=== PATIENT | male | born 1965 | race Caucasian/White ===

== ENCOUNTER 2019-03-17 17:09 | Emergency (ER) | payer MEDICAID ==
[~2019-03-17] VITALS: Ht 175.3 cm; Wt 90.9 kg
[~2019-03-17 17:09] MED LIST: ALBU8.5H8 IH; IBUP-1984 PO; LEVO25TA50 PO; NITR0.4T48 SL; NITR0.4T51 SL; OMEP-84 PO; TRAM50TA2 PO; TRIA1CAP PO
[2019-03-17 17:12] VITALS: BP 119/72
[2019-03-17] MEDS ORDERED: cephalexin 250mg capsule PO ONE (18:45)
[2019-03-17] MEDS ORDERED: CEPH500C5 PO (18:46)
== END 2019-03-17 19:00 | disposition home or self-care (01) ==
LOC: ER 17:09
DX: L03.116 Cellulitis of left lower limb (principal); I25.10 Atherosclerotic heart disease of native coronary artery without angina pectoris; J44.9 Chronic obstructive pulmonary disease, unspecified; G89.29 Other chronic pain; F17.200 Nicotine dependence, unspecified, uncomplicated; Z79.899 Other long term (current) drug therapy; Z98.890 Other specified postprocedural states; Z59.0 Homelessness
CPT/HCPCS: 99283

== ENCOUNTER 2021-01-16 14:38 | Emergency (ER) | payer MEDICAID ==
[~2021-01-16] VITALS: Ht 175.3 cm; Wt 92.4 kg
[~2021-01-16 14:38] MED LIST changes: +ALBU8.5H17 IH; -ALBU8.5H8 IH
[2021-01-16 15:54] VITALS: BP 124/80
== END 2021-01-16 22:21 | disposition left against medical advice (07) ==
LOC: ER 14:39
DX: Z02.89 Encounter for other administrative examinations (principal); R42 Dizziness and giddiness; I25.10 Atherosclerotic heart disease of native coronary artery without angina pectoris; J44.9 Chronic obstructive pulmonary disease, unspecified; G89.29 Other chronic pain; Z98.890 Other specified postprocedural states; Z72.89 Other problems related to lifestyle; Z79.899 Other long term (current) drug therapy
CPT/HCPCS: 99283

== ENCOUNTER 2024-05-24 06:30 | Inpatient (IN) | payer MEDICAID ==
[~2024-05-24] VITALS: Ht 175.3 cm; Wt 97.1 kg
[2024-05-24] MEDS ORDERED: ipratropium/albuterol 3ml nebule NEB PRN (06:55)
[2024-05-24] MEDS: ketorolac trometh 30MG/ML vial 30 MG/ML VIAL IV ONE (07:36)
[2024-05-24] MEDS: CefTRIAXone 2gm/D5W 50ml BAG 50 ML IV ONE (07:36)
[2024-05-24] MEDS: methylPREDNISolone sod succ/PF 40mg inj. IV SCH (07:37)
[2024-05-24 08:07] LABS: BASOPHILS # (AUTO) 0.1 X10'3 (0-0.2); BASOPHILS % (AUTO) 1.1 % (0-1); EOSINOPHILS # (AUTO) 0.1 X10'3 (0-0.9); LYMPHOCYTES # (AUTO) 0.7 X10'3 (1.1-4.8); LYMPHOCYTES % (AUTO) 7.4 % (21-51); MEAN CORPUSCULAR HGB CONC 34.3 g/dL (33.0-36.5); MEAN CORPUSCULAR VOLUME 98.9 FL (78-98); MEAN PLATELET VOLUME 6.9 FL (7.4-10.4); MONOCYTES # (AUTO) 0.7 X10'3 (0-0.9); NEUTROPHILS # (AUTO) 8.3 X10'3 (1.8-7.7); NEUTROPHILS % (AUTO) 83.5 % (42-75); PLATELET COUNT 618 X10'3 (140-440); RED BLOOD COUNT 3.54 X10'6 (4.70-6.10)
[2024-05-24] MEDS ORDERED: iohexol 350MG/ML 100ml bottle IV ONE (08:18)
[2024-05-24 08:27] LABS: ALANINE AMINOTRANSFERASE 87 U/L (12-78); ALBUMIN/GLOBULIN RATIO 0.7 (1.1-1.5); ANION GAP 8 (8-16); BILIRUBIN,TOTAL 0.5 MG/DL (0.1-1.0); BLOOD UREA NITROGEN 13 MG/DL (7-18); BUN/CREATININE RATIO 10.5 (10.0-20.0); CALCIUM 9.1 MG/DL (8.5-10.1); CHLORIDE 100 MMOL/L (99-107); CREATININE 1.24 MG/DL (0.60-1.10); GLUCOSE 118 MG/DL (70-104); SODIUM 138 MMOL/L (135-145); TOTAL PROTEIN 7.6 G/DL (6.4-8.2); eCRCL 64 ML/MIN; eGFR 60 ML/MIN
[2024-05-24 08:33] LABS: PRO BRAIN NATRIURETIC PEPTIDE 195 PG/ML (0-125)
[2024-05-24 08:36] LABS: ASPARTATE AMINO TRANSFERASE 88 U/L (10-37); POTASSIUM 4.5 MMOL/L (3.5-5.1)
[2024-05-24 08:45] LABS: ALKALINE PHOSPHATASE 1003 IU/L (46-116)
[2024-05-24] MEDS ORDERED: NO HOME MEDS (10:09)
[2024-05-24] MEDS ORDERED: acetaminophen 325mg tablet PO PRN ×2 (10:30)
[2024-05-24] MEDS ORDERED: potassium Cl 40MEQ/1/2NS 520ml 520 ML IV PRN (10:30)
[2024-05-24] MEDS ORDERED: magnesium hydroxide 30ml (MOM) UD suspension PO PRN (10:30)
[2024-05-24] MEDS ORDERED: ondansetron/PF 4mg/2ml inj IV PRN (10:30)
[2024-05-24] MEDS ORDERED: potassium Cl 20 mEq SR tablet PO PRN ×2 (10:30)
[2024-05-24] MEDS ORDERED: magnesium sulf-water 2g/50mL 50 ML IV PRN (10:30)
[2024-05-24] MEDS ORDERED: magnesium sulf-water 4G/100mL 100 ML IV PRN (10:30)
[2024-05-24] MEDS ORDERED: morphine 2 MG/ML inj. syringe IV PRN (10:30)
[2024-05-24 10:58] LABS: MAGNESIUM 2.1 MG/DL (1.5-2.4)
[2024-05-24 11:03] LABS: LACTATE DEHYDROGENASE 326 U/L (85-227)
[2024-05-24 11:45] VITALS: BP 157/107; PULSE 77; RESP 18; O2SAT 93
[2024-05-24 12:03] VITALS: BP 138/92; PULSE 79; RESP 20; O2SAT 95
[2024-05-24] MEDS: morphine 2 MG/ML inj. syringe IV PRN (12:07)
[2024-05-24 12:45] LABS: BFSOURCE PLEURAL FLD; PLEURAL FLUID PH 7.354 (7.63-7.65)
[2024-05-24 13:04] LABS: GLUCOSE,BODY FLUID 111 MG/DL; LDH,BODY FLUID 170 U/L; TOTAL PROTEIN,BODY FLUID 5.4 G/DL
[2024-05-24 13:52] LABS: BF RBC COUNT 46 /CU MM; BF WBC COUNT 333 /CU MM (0-1000); BFAPPEAR HAZY; BFCOLOR YELLOW; BFSOURCE LEFT PLEURAL FLD; BFVOLUME 60 ML; LYMPHOCYTES,BODY FLUID 9 %; NEUTROPHILS,BODY FLUID 71 %
[2024-05-24 13:53] LABS: EOSINOPHILS,BODY FLUID 4 %; MONOCYTES,BODY FLUID 16 %
[2024-05-24] MEDS: PERFLUTREN PROTEIN-A MICROSPHR (Optison) 0.22 MG/ML 3ML VIAL IV ONE (15:25)
[2024-05-24] MEDS ORDERED: CLINDAMYCIN 600mg IN NS 50ML 50 ML IV SCH (15:45)
[2024-05-24 16:49] LABS: ABG BASE EXCESS -0.2 mmol/L (-2.0-3.0); ABG HCO3 25.5 mmol/L (21.0-28.0); ABG OXYGEN SATURATION 88.9 % (94.0-98.0); ABG PCO2 (T) 45.3 mmHg (35.0-48.0); ABG PH (T) 7.367 (7.350-7.450); ABG PO2 (T) 56.6 mmHg (83.0-108.0); ALLEN'S TEST POSITIVE; FCOHb 1.6 % (0.5-1.5); FHHb 10.9 % (0.0-5.0); FMetHb 0.3 % (0.0-1.5); FO2Hb 87.2 % (94.0-98.0); MODE NASAL CANNULA; PATIENT TEMPERATURE 36.8; TOTAL HEMOGLOBIN 13.4 G/dl (13.5-17.5)
[2024-05-24 18:00] VITALS: BP 113/66; PULSE 80; RESP 18; TEMP 97; O2SAT 95
[2024-05-24] MEDS: K and/or MAG REPLACEMENT MC SCH (20:00)
[2024-05-24] MEDS: docusate sod 100mg capsule PO SCH (20:00)
[2024-05-24] MEDS: heparin, porcine 5000 units/ml vial SQ SCH (20:00)
[2024-05-24] MEDS: levoFLOXACIN-Levaquin 750MG/D5 150 ML IV SCH (21:13)
[2024-05-24] MEDS: HYDROcodone/acetaminophen 10/325mg tab PO PRN (21:47)
[2024-05-24 22:00] VITALS: BP 138/80; PULSE 71; RESP 16; TEMP 98.2; O2SAT 95
[2024-05-24 23:13] VITALS: BP 125/69; PULSE 91; RESP 24; TEMP 97.7; O2SAT 95
[2024-05-25] MEDS: clindamycin 600mg/D5W 50ml 50 ML IV SCH (00:36)
[2024-05-25] MEDS: mag hydrox/Alum hydrox/simeth 30ml oral suspension PO PRN (02:00)
[2024-05-25] MEDS ORDERED: methylPREDNISolone sod succ 125mg/2ml vial IV SCH (02:19)
[2024-05-25] MEDS: methylPREDNISolone sod succ 125mg/2ml vial IV SCH (02:44)
[2024-05-25 04:33] LABS: BASOPHILS % (AUTO) 0.1 % (0-1); EOSINOPHILS % (AUTO) 0 % (0-6); HEMOGLOBIN 11.7 g/dl (14.0-17.9); LYMPHOCYTES # (AUTO) 0.5 X10'3 (1.1-4.8); LYMPHOCYTES % (AUTO) 3.9 % (21-51); MEAN CORPUSCULAR HEMOGLOBIN 33.2 PG (27.0-31.0); MEAN CORPUSCULAR HGB CONC 33.5 g/dL (33.0-36.5); MEAN CORPUSCULAR VOLUME 98.9 FL (78-98); MEAN PLATELET VOLUME 6.7 FL (7.4-10.4); MONOCYTES # (AUTO) 0.3 X10'3 (0-0.9); MONOCYTES % (AUTO) 2.1 % (2-12); NEUTROPHILS # (AUTO) 11.8 X10'3 (1.8-7.7); NEUTROPHILS % (AUTO) 93.9 % (42-75); PLATELET COUNT 597 X10'3 (140-440); RED BLOOD COUNT 3.54 X10'6 (4.70-6.10); WHITE BLOOD COUNT 12.5 X10'3 (4.5-11.0)
[2024-05-25 04:56] LABS: ALANINE AMINOTRANSFERASE 83 U/L (12-78); ALBUMIN 2.8 G/DL (3.4-5.0); ALBUMIN/GLOBULIN RATIO 0.6 (1.1-1.5); ALKALINE PHOSPHATASE 976 IU/L (46-116); ANION GAP 7 (8-16); ASPARTATE AMINO TRANSFERASE 72 U/L (10-37); BILIRUBIN,TOTAL 0.3 MG/DL (0.1-1.0); BLOOD UREA NITROGEN 24 MG/DL (7-18); BUN/CREATININE RATIO 16.1 (10.0-20.0); CALCIUM 8.6 MG/DL (8.5-10.1); CHLORIDE 99 MMOL/L (99-107); CREATININE 1.49 MG/DL (0.60-1.10); GLUCOSE 215 MG/DL (70-104); POTASSIUM 4.3 MMOL/L (3.5-5.1); SODIUM 138 MMOL/L (135-145); TOTAL CARBON DIOXIDE 31.9 MMOL/L (24-32); TOTAL PROTEIN 7.4 G/DL (6.4-8.2); eCRCL 53 ML/MIN; eGFR 48 ML/MIN
[2024-05-25 06:00] VITALS: BP 126/80; PULSE 84; RESP 16; TEMP 98.9; O2SAT 94
[2024-05-25] MEDS: normal saline 1000ml 1,000 ML IV SCH (08:53)
[2024-05-25] MEDS: nicotine 21mg patch - 24 hr TD SCH (08:54)
[2024-05-25 10:00] VITALS: BP 127/76; PULSE 75; RESP 16; TEMP 98.5; O2SAT 96
[2024-05-25 12:13] LABS: URINE AMPHETAMINE SCREEN POSITIVE (Neg); URINE BARBITUATE SCREEN NEGATIVE (Neg); URINE BENZODIAZEPINES SCREEN NEGATIVE (Neg); URINE CANNABINOID SCREEN POSITIVE (Neg); URINE COCAINE SCREEN NEGATIVE (Neg); URINE METHADONE SCREEN NEGATIVE (Neg); URINE OPIATE SCREEN POSITIVE (Neg); URINE PHENCYCLIDINE SCREEN NEGATIVE (Neg)
[2024-05-25 18:00] VITALS: BP 130/76; PULSE 90; RESP 16; TEMP 98.4; O2SAT 97
[2024-05-25 20:00] VITALS: RESP 16; O2SAT 97
[2024-05-25 22:00] VITALS: BP 156/90; PULSE 78; RESP 14; TEMP 97.7; O2SAT 95
[2024-05-26] VITALS (7 sets, daily range): BP systolic 113–201; BP diastolic 54–110; PULSE 63–84; RESP 16–20; TEMP 97.5–98.1; O2SAT 95–97
[2024-05-26] MEDS: hydrALAZINE 20mg/ml inj. IV STA (07:45)
[2024-05-26] MEDS: amLODIPine 5mg tablet PO SCH (08:15)
[2024-05-26 08:21] LABS: BASOPHILS % (AUTO) 0.1 % (0-1); EOSINOPHILS % (AUTO) 0 % (0-6); HEMATOCRIT 35.2 % (42.0-52.0); HEMOGLOBIN 11.8 g/dl (14.0-17.9); LYMPHOCYTES # (AUTO) 0.5 X10'3 (1.1-4.8); LYMPHOCYTES % (AUTO) 2.4 % (21-51); MEAN CORPUSCULAR HEMOGLOBIN 33.4 PG (27.0-31.0); MEAN CORPUSCULAR HGB CONC 33.5 g/dL (33.0-36.5); MEAN CORPUSCULAR VOLUME 99.7 FL (78-98); MEAN PLATELET VOLUME 6.6 FL (7.4-10.4); MONOCYTES # (AUTO) 0.5 X10'3 (0-0.9); MONOCYTES % (AUTO) 2.8 % (2-12); NEUTROPHILS # (AUTO) 17.9 X10'3 (1.8-7.7); NEUTROPHILS % (AUTO) 94.7 % (42-75); PLATELET COUNT 568 X10'3 (140-440); RED BLOOD COUNT 3.53 X10'6 (4.70-6.10); RED CELL DISTRIBUTION WIDTH 17.9 % (11.5-14.5); WHITE BLOOD COUNT 18.9 X10'3 (4.5-11.0)
[2024-05-26 08:50] LABS: ALANINE AMINOTRANSFERASE 79 U/L (12-78); ALBUMIN 2.9 G/DL (3.4-5.0); ALBUMIN/GLOBULIN RATIO 0.6 (1.1-1.5); ALKALINE PHOSPHATASE 831 IU/L (46-116); ANION GAP 6 (8-16); ASPARTATE AMINO TRANSFERASE 49 U/L (10-37); BILIRUBIN,TOTAL 0.4 MG/DL (0.1-1.0); BLOOD UREA NITROGEN 25 MG/DL (7-18); BUN/CREATININE RATIO 16.6 (10.0-20.0); CALCIUM 8.6 MG/DL (8.5-10.1); CHLORIDE 98 MMOL/L (99-107); CREATININE 1.51 MG/DL (0.60-1.10); GLUCOSE 198 MG/DL (70-104); POTASSIUM 5.2 MMOL/L (3.5-5.1); SODIUM 133 MMOL/L (135-145); TOTAL CARBON DIOXIDE 28.6 MMOL/L (24-32); TOTAL PROTEIN 7.4 G/DL (6.4-8.2); eCRCL 53 ML/MIN; eGFR 48 ML/MIN
[2024-05-26] MEDS: hydrALAZINE 20mg/ml inj. IV SCH (10:36)
[2024-05-27 06:00] VITALS: BP 134/78; PULSE 81; RESP 16; RESP 18; TEMP 97.9; O2SAT 93; O2SAT 96
[2024-05-27 07:42] VITALS: RESP 18; O2SAT 95
[2024-05-27 09:00] LABS: BASOPHILS % (AUTO) 0.1 % (0-1); EOSINOPHILS % (AUTO) 0 % (0-6); HEMATOCRIT 37.1 % (42.0-52.0); HEMOGLOBIN 12.4 g/dl (14.0-17.9); LYMPHOCYTES # (AUTO) 0.3 X10'3 (1.1-4.8); LYMPHOCYTES % (AUTO) 1.8 % (21-51); MEAN CORPUSCULAR HEMOGLOBIN 33.3 PG (27.0-31.0); MEAN CORPUSCULAR HGB CONC 33.5 g/dL (33.0-36.5); MEAN CORPUSCULAR VOLUME 99.4 FL (78-98); MEAN PLATELET VOLUME 6.6 FL (7.4-10.4); MONOCYTES # (AUTO) 0.3 X10'3 (0-0.9); MONOCYTES % (AUTO) 1.5 % (2-12); NEUTROPHILS # (AUTO) 17.1 X10'3 (1.8-7.7); NEUTROPHILS % (AUTO) 96.6 % (42-75); PLATELET COUNT 564 X10'3 (140-440); RED BLOOD COUNT 3.73 X10'6 (4.70-6.10); RED CELL DISTRIBUTION WIDTH 18.2 % (11.5-14.5); WHITE BLOOD COUNT 17.7 X10'3 (4.5-11.0)
[2024-05-27 09:32] LABS: ALANINE AMINOTRANSFERASE 67 U/L (12-78); ALBUMIN 2.9 G/DL (3.4-5.0); ALBUMIN/GLOBULIN RATIO 0.7 (1.1-1.5); ALKALINE PHOSPHATASE 753 IU/L (46-116); ANION GAP 8 (8-16); ASPARTATE AMINO TRANSFERASE 34 U/L (10-37); BILIRUBIN,TOTAL 0.3 MG/DL (0.1-1.0); BLOOD UREA NITROGEN 25 MG/DL (7-18); BUN/CREATININE RATIO 18.1 (10.0-20.0); CHLORIDE 98 MMOL/L (99-107); CREATININE 1.38 MG/DL (0.60-1.10); GLUCOSE 216 MG/DL (70-104); MAGNESIUM 1.9 MG/DL (1.5-2.4); POTASSIUM 4.9 MMOL/L (3.5-5.1); SODIUM 132 MMOL/L (135-145); TOTAL CARBON DIOXIDE 26.2 MMOL/L (24-32); TOTAL PROTEIN 7.2 G/DL (6.4-8.2); eCRCL 58 ML/MIN; eGFR 53 ML/MIN
[2024-05-27 10:00] VITALS: BP 156/81; PULSE 86; RESP 20; TEMP 97.8; O2SAT 91
[2024-05-27] MEDS: methylPREDNISolone sod succ 125mg/2ml vial IV SCH (14:00)
[2024-05-27 18:50] VITALS: BP 107/31; PULSE 83; RESP 18; RESP 20; TEMP 97.6; O2SAT 93; O2SAT 94; O2SAT 96
[2024-05-27] MEDS: HYDROcodone/acetaminophen 5mg/325mg tablet PO PRN (21:21)
[2024-05-27 22:00] VITALS: BP 129/75; PULSE 87; RESP 16; TEMP 98.3; O2SAT 94
[2024-05-28 07:00] VITALS: BP 148/82; PULSE 76; RESP 18; TEMP 98; O2SAT 94
[2024-05-28 07:58] LABS: BASOPHILS % (AUTO) 0.2 % (0-1); EOSINOPHILS % (AUTO) 0 % (0-6); LYMPHOCYTES # (AUTO) 0.3 X10'3 (1.1-4.8); MEAN CORPUSCULAR HEMOGLOBIN 33.2 PG (27.0-31.0); MEAN CORPUSCULAR HGB CONC 33.3 g/dL (33.0-36.5); MEAN CORPUSCULAR VOLUME 99.8 FL (78-98); MEAN PLATELET VOLUME 7.2 FL (7.4-10.4); MONOCYTES # (AUTO) 0.4 X10'3 (0-0.9); MONOCYTES % (AUTO) 2.5 % (2-12); NEUTROPHILS # (AUTO) 14.1 X10'3 (1.8-7.7); NEUTROPHILS % (AUTO) 95.3 % (42-75); PLATELET COUNT 319 X10'3 (140-440); RED BLOOD COUNT 3.61 X10'6 (4.70-6.10); RED CELL DISTRIBUTION WIDTH 18.5 % (11.5-14.5); WHITE BLOOD COUNT 14.8 X10'3 (4.5-11.0)
[2024-05-28 08:16] VITALS: RESP 14; O2SAT 86
[2024-05-28 08:35] LABS: ALANINE AMINOTRANSFERASE 58 U/L (12-78); ALBUMIN 2.8 G/DL (3.4-5.0); ALBUMIN/GLOBULIN RATIO 0.7 (1.1-1.5); ALKALINE PHOSPHATASE 639 IU/L (46-116); ANION GAP 8 (8-16); ASPARTATE AMINO TRANSFERASE 29 U/L (10-37); BILIRUBIN,TOTAL 0.5 MG/DL (0.1-1.0); BLOOD UREA NITROGEN 25 MG/DL (7-18); BUN/CREATININE RATIO 18.9 (10.0-20.0); CALCIUM 8.3 MG/DL (8.5-10.1); CHLORIDE 98 MMOL/L (99-107); CREATININE 1.32 MG/DL (0.60-1.10); GLUCOSE 170 MG/DL (70-104); MAGNESIUM 1.9 MG/DL (1.5-2.4); POTASSIUM 4.2 MMOL/L (3.5-5.1); SODIUM 134 MMOL/L (135-145); TOTAL CARBON DIOXIDE 27.8 MMOL/L (24-32); TOTAL PROTEIN 6.8 G/DL (6.4-8.2); eCRCL 60 ML/MIN; eGFR 56 ML/MIN
[2024-05-28 11:00] VITALS: BP 146/83; PULSE 70; RESP 18; TEMP 97.2; O2SAT 93
[2024-05-28 19:50] VITALS: BP 136/77; PULSE 64; RESP 18; TEMP 97.5; O2SAT 94
[2024-05-28] MEDS ORDERED: hydrALAZINE 20mg/ml inj. IV PRN (20:20)
[2024-05-28 22:00] VITALS: BP 135/76; PULSE 82; RESP 16; TEMP 96.2; O2SAT 94
[2024-05-29 06:00] VITALS: BP 115/67; PULSE 86; RESP 16; TEMP 96.8; O2SAT 90
[2024-05-29 08:30] VITALS: RESP 16; O2SAT 96
[2024-05-29 09:21] LABS: BASOPHILS % (AUTO) 0 % (0-1); EOSINOPHILS % (AUTO) 0 % (0-6); HEMATOCRIT 33.8 % (42.0-52.0); HEMOGLOBIN 11.3 g/dl (14.0-17.9); LYMPHOCYTES # (AUTO) 0.2 X10'3 (1.1-4.8); LYMPHOCYTES % (AUTO) 1.6 % (21-51); MEAN CORPUSCULAR HEMOGLOBIN 33.1 PG (27.0-31.0); MEAN CORPUSCULAR HGB CONC 33.5 g/dL (33.0-36.5); MEAN CORPUSCULAR VOLUME 98.9 FL (78-98); MEAN PLATELET VOLUME 6.6 FL (7.4-10.4); MONOCYTES # (AUTO) 0.6 X10'3 (0-0.9); MONOCYTES % (AUTO) 4.3 % (2-12); NEUTROPHILS # (AUTO) 12.7 X10'3 (1.8-7.7); NEUTROPHILS % (AUTO) 94.1 % (42-75); PLATELET COUNT 450 X10'3 (140-440); RED BLOOD COUNT 3.42 X10'6 (4.70-6.10); RED CELL DISTRIBUTION WIDTH 18.3 % (11.5-14.5); WHITE BLOOD COUNT 13.5 X10'3 (4.5-11.0)
[2024-05-29 10:00] VITALS: BP 135/73; PULSE 78; RESP 20; TEMP 98.5; O2SAT 83
[2024-05-29 10:43] LABS: ALANINE AMINOTRANSFERASE 48 U/L (12-78); ALBUMIN 2.7 G/DL (3.4-5.0); ALBUMIN/GLOBULIN RATIO 0.7 (1.1-1.5); ALKALINE PHOSPHATASE 537 IU/L (46-116); ANION GAP 10 (8-16); ASPARTATE AMINO TRANSFERASE 28 U/L (10-37); BILIRUBIN,TOTAL 0.4 MG/DL (0.1-1.0); BLOOD UREA NITROGEN 37 MG/DL (7-18); BUN/CREATININE RATIO 26.4 (10.0-20.0); CHLORIDE 97 MMOL/L (99-107); GLUCOSE 233 MG/DL (70-104); SODIUM 134 MMOL/L (135-145); TOTAL CARBON DIOXIDE 27.3 MMOL/L (24-32); TOTAL PROTEIN 6.4 G/DL (6.4-8.2); eCRCL 57 ML/MIN; eGFR 52 ML/MIN
[2024-05-29 14:15] VITALS: PULSE 79; RESP 18; O2SAT 97
[2024-05-29] MEDS ORDERED: PRED10TA23 PO (19:54)
[2024-05-29] MEDS ORDERED: FLUT1DIS4 INH (19:54)
[2024-05-29] MEDS ORDERED: ALBU90AE INH (19:54)
[2024-05-29] MEDS ORDERED: NOR5T PO (19:54)
[2024-05-29] MEDS ORDERED: LEVO750T68 PO (19:54)
== END 2024-05-29 17:30 | disposition home or self-care (01) | DRG 140 ==
LOC: ER 06:30 → ED HOLD 10:33 → EDBEDREQ 15:39 → EDBEDREQTM 15:39 → SUR 3N 18:00
PROVIDERS: ADMIT Nurse Practitioner Family; ATTEND Nurse Practitioner Family
PROC: B32T1ZZ Computerized Tomography (CT Scan) of Left Pulmonary Artery using Low Osmolar Contrast (ICD-10-PCS; principal; 2024-05-24)
PROC: B3201ZZ Computerized Tomography (CT Scan) of Thoracic Aorta using Low Osmolar Contrast (ICD-10-PCS; 2024-05-24)
PROC: B32S1ZZ Computerized Tomography (CT Scan) of Right Pulmonary Artery using Low Osmolar Contrast (ICD-10-PCS; 2024-05-24)
PROC: 0W9B3ZZ Drainage of Left Pleural Cavity, Percutaneous Approach (ICD-10-PCS; 2024-05-24)
DX: J44.1 Chronic obstructive pulmonary disease with (acute) exacerbation (principal); J96.01 Acute respiratory failure with hypoxia; J18.9 Pneumonia, unspecified organism; N17.9 Acute kidney failure, unspecified; J90 Pleural effusion, not elsewhere classified; I25.10 Atherosclerotic heart disease of native coronary artery without angina pectoris; F17.210 Nicotine dependence, cigarettes, uncomplicated; F12.10 Cannabis abuse, uncomplicated; J20.9 Acute bronchitis, unspecified; G89.29 Other chronic pain; M54.6 Pain in thoracic spine; F15.10 Other stimulant abuse, uncomplicated; J44.0 Chronic obstructive pulmonary disease with (acute) lower respiratory infection; Z79.51 Long term (current) use of inhaled steroids; Z79.899 Other long term (current) drug therapy; Z91.199 Patient's noncompliance with other medical treatment and regimen due to unspecified reason
CPT/HCPCS: 32555; 36415; 36600; 71045; 71275; 80053; 80305; 82803; 82945; 83615; 83735; 83880; 83986; 84145; 84157; 84484; 85018; 85025; 87040; 87070; 87075; 87081; 89051; 93005; 93306; 94760; 97116; 97161; 97530; 99285; A4615; A6446; G0378; J0360; J0696; J1644; J1885; J1956; J2270; J2919; J3490; J7030; Q9967